=== PATIENT | female | born 1935 | race Caucasian/White ===

== ENCOUNTER 2022-04-14 23:26 | Emergency (ER) | payer MEDICARE, OTHER ==
[~2022-04-14] VITALS: Ht 149.9 cm; Wt 54.4 kg
--- NOTE | 2022-04-15 00:11 | NUR ---
BIB FAMILY FOR C/O H/A, L RIB PAIN AND WEAKNESS X ONE MONTH. PT AWAKE AND ALERT X4 BREATHING UNLABORED. PLACED ON MONITOR AND V/S WNL. GRANDSON AT BEDSIDE.
--- NOTE | 2022-04-15 00:26 | NUR ---
20G IV ESTABLISHED AT . BLOOD DRAWN AND SENT TO LAB
[2022-04-15 00:36] LABS: BASOPHILS % (AUTO) 0.2 % (0.0-2.0); EOSINOPHILS % (AUTO) 1.1 % (0.0-6.0); HEMATOCRIT 31 % (33-45); HEMOGLOBIN 10.4 g/dL (11.5-14.8); LYMPHOCYTES # (AUTO) 3.1 K/uL (0.8-4.8); LYMPHOCYTES % (AUTO) 31.3 % (20.0-44.0); MEAN CORPUSCULAR HGB CONC 34 g/dl (31.0-36.0); MEAN CORPUSCULAR VOLUME 93 fL (82-100); MONOCYTES # (AUTO) 0.6 K/uL (0.1-1.30); MONOCYTES % (AUTO) 6.5 % (2.0-12.0); NEUTROPHILS % (AUTO) 60.9 % (43.0-81.0); PLATELET COUNT (AUTO) 360 K/uL (150-450); RED BLOOD CELL COUNT(AUTO) 3.31 MIL/uL (4.0-5.2); WHITE BLOOD COUNT (AUTO) 9.8 K/uL (4.3-11.0)
--- NOTE | 2022-04-15 00:42 | NUR ---
PT BEING TRANSPORTED TO CT
[2022-04-15 00:48] LABS: CALCIUM, SERUM 9.2 mg/dL (8.5-10.1); CARBON DIOXIDE 28 mmol/L (21-32); CHLORIDE 103 mmol/L (98-107); CREATININE 0.9 mg/dL (0.6-1.3); GLUCOSE 98 mg/dL (74-106); SODIUM SERUM 140 mmol/L (136-145); UREA NITROGEN, BLOOD 16 mg/dL (7-18)
[2022-04-15] MEDS ORDERED: TRAMADOL HCL 50 MG TABLET PO ONE (01:30)
[2022-04-15] MEDS ORDERED: TRAMADOL HCL 50 MG TABLET ONE (01:34)
--- NOTE | 2022-04-15 03:36 | NUR ---
Patient discharged to home in stable condition via W/C. Written and verbal after care instructions given. Patient verbalizes understanding of instruction.
[2022-04-15 04:25] VITALS: BP 129/81
== END 2022-04-15 03:39 | disposition home or self-care (01) ==
LOC: ER 23:32 → EDBD 23:32 → ER 04-15 03:39
DX: R07.81 Pleurodynia (principal); R51.9 Headache, unspecified; R53.1 Weakness; I10 Essential (primary) hypertension
CPT/HCPCS: 36415; 70450-TC; 71045-TC; 80048-TC; 84484-TC; 85025-TC